=== PATIENT | female | born 1955 | race Caucasian/White ===

== ENCOUNTER 2020-06-04 11:58 | Day surgery (SDC) | payer OTHER, SELFPAY ==
--- NOTE | 2020-06-01 18:29 | HP.PCM_ITS ---
History and Physical Date of Admission: 06/04/20 HISTORY AND PHYSICAL ? Tari Macias 1955 ? ? REFERRING PHYSICIAN: Rebecca Jackson MD ? CHIEF COMPLAINT: No chief complaint on file. ? HPI: The patient is a 64 year old female presents with metastatic cholangiocarcinoma. This was found incidentally on CT scan when she presented with diverticulitis. She underwent CT guided biopsy which revealed poorly differentiated adenocarcinoma. She is being referred for placement of portacath for IV access for chemotherapy. She denies previous central line placement. She denies history of clavicular or rib fractures. She denies history of upper extremity DVT. She denies bleeding tendencies. She denies fevers. ? ? PAST MEDICAL HISTORY ? 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 Diverticulitis ? ? Esophageal reflux ? ? Essential hypertension, benign ? ? Sciatica ? ? Variants of migraine, not elsewhere classified, without mention of intractable migraine without mention of status migrainosus ? ? PAST SURGICAL HISTORY ? COLONOSCOPY ? 2013 ? repeat 5 years ? CONIZATION OF CERVIX; COLD KNIFE/LASER ? 1984 ? DOMINIC HX ? ? ? PAST SURGICAL HISTORY OF ? ? ? Pins in Left Ankle ? PAST SURGICAL HISTORY OF ? ? ? Pins Removed from Left Ankle ? UNSPECIFIED ORAL SURGERY PROCEDURE, BY REPORT ? ? ? Parachute Teeth Removed x4 ? WRIST SURGERY HX Right 02/2020 ? ? Current Outpatient Medications ? cetirizine (ZYRTEC) 10 mg tablet Take 10 mg by mouth as needed for Cold/Allergy Symptoms. ? ondansetron (ZOFRAN) 4 mg tablet Take 4 mg by mouth every 8 hours as needed. ? ATENOLOL 25 MG TAB Take one(1) tablet daily. ? ZOLOFT 50 MG TAB Take one(1) tablet daily. ? PROTONIX 40 MG TAB Take 40 mg by mouth once daily. ? ? ? ALLERGIES: Patient has no known allergies. ? PERSONAL HISTORY: Social History ?Tobacco Use ? Smoking status: Never Smoker ? Smokeless tobacco: Never Used Substance Use Topics ? Alcohol use: Not Currently ? ? Comment: none for 40 years ? Drug use: Not Currently ? ? Types: Marijuana ? ? Comment: smoked pot in college. none since. ? FAMILY HISTORY ? Cancer Mother ? ? ovarian ? Coronary Artery Disease Father ? ? Hypertension Father ? ? Systemic Lupus Erythematosus Sister ? ? Diabetes Sister ? ? No Known Problems Sister ? ? No Known Problems Brother ? ? Cancer Maternal Grandmother ? ? uterine ? Stroke Maternal Grandfather ? ? Heart disease Paternal Grandmother ? ? ? REVIEW OF SYSTEMS: General - denies fevers, has had decreased appetite with weight loss of almost 40 pounds in a few months Cardiovascular - denies chest pain, denies history of MA Pulmonary - denies shortness of breath, denies coughing up blood Gastrointestinal - denies abdominal pain, denies hematemesis, denies blood in stools Neurological - denies seizures, has migraine type headaches, denies chronic numbness/weakness of extremities Genitourinary - denies burning with urination, denies blood in urine Hematological - denies spontaneous/prolonged bleeding Skin - denies nonhealing skin wounds Musculoskeletal - no new muscle/bone pain Endocrine - denies diabetes, no thyroid problems Psychological ? denies hallucinations ? PHYSICAL EXAMINATION: General: The patient is 64 year old female, well nourished, well hydrated in no acute distress. The patient is oriented to time, place, and person. VITALS: Pulse (!) 121, temperature 36.9 ?C (98.4 ?F), weight 66.3 kg (146 lb 3.2 oz), last menstrual period 10/31/2010, SpO2 98 %. Body mass index is 23.5 kg/m?. Head ? Normocephalic. EOM intact with sclera clear and no icterus noted. Mouth with mucus membranes moist. Neck - supple with no jugular venous distention noted. Trachea is midline. Lungs ? clear to auscultation. Normal breath sounds. No rales/rhonchi/wheezing noted. No labored breathing noted, such as retractions. No cough heard. Heart ? normal S1 and S2 auscultated. No rubs/clicks/murmurs noted. Regular rate. Abdomen ? soft and benign. Normal bowel sounds. No abdominal bruits noted. Extremities ? no calf tenderness noted. No pitting edema noted. Skin ? normal skin integrity. Neurological ? gait normal, no focal deficits noted. Psych ? calm and appropriate ? ? IMPRESSION: metastatic cholangiocarcinoma to liver, need for IV access for palliative chemotherapy. ? PLAN: I have discussed the above with the patient and her who is present with her. I have offered palcement of portacath. I have explained the procedure to the patient. I have counseled the patient as to the risks of the procedure, including but not limited to: infection, bleeding, injury to any blood vessels/nerves, scar tissue, injury to the lungs such as hemothorax and/or pneumothorax, thromboses of vessels, catheter infection, non functioning of port, wound infections, complications of anesthesia, etc. ? the patient understands. ? The patient was offered a surgery/procedure . The provider and patient have discussed in detail the risk of exposure to and/or potential harm posed by the COVID-19 virus with having a surgery/procedure at this time versus the risk of? delaying the surgery/procedure. It is not possible to know either the risk of delaying the surgery or procedure or chance of getting an infection with perfect accuracy, but a joint decision was made between the patient and the provider ?to proceed at this time with the scheduled surgery/procedure. ? The patient wishes to proceed. I have answered all questions to the patient?s satisfaction and the patient has no further questions. ? . 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
[2020-06-04] VITALS (8 sets, daily range): BP systolic 110–164; BP diastolic 65–90; PULSE 61–98; RESP 16–18; TEMP 36.3–37.3; O2SAT 95–100; BMI 23.1
[2020-06-04] MEDS: Lactated Ringers 1,000 ML 75 ML IV ×2 (12:37→15:21)
[2020-06-04] MEDS: Cefazolin 2 GM in 0.9% Normal Saline 100 ML IV (13:45)
--- NOTE | 2020-06-04 15:01 | OP.PCM_ITS ---
Report of Operation Date of Procedure: 06/04/20 Pre-Operative Diagnosis: metastatic cholangiocarcinoma, need for IV access Post-Operative Diagnosis: same Surgery/Procedure Performed:: placement of permanent indwelling tunneled catheter in left subclavian vein with subcutaneous port Description of Surgical Findings:: had to pull back catheter because of inability to aspirate blood from catheter, thus tip may be in brachiocephalic vein Type of Anesthesia:: Local MAC Anesthesiologist: Roland Willson Specimen's removed: none Estimated Blood Loss (mL): 10 ml Fluids Replaced: 800 ml RL Description of Procedure: After informed consent was given, the patient was brought to the Operating Room. Appropriate time out protocol was followed. The patient was then placed in the supine position. The patient was then given IV conscious sedation for anesthesia. The patient?s upper chest and neck were then prepped with a surgical skin preparation and sterile surgical drapes were placed. After proper landmarks were ascertained, the skin at the upper left chest area was then infiltrated with 1% xylocaine with epinephrine. A needle trocar was then inserted into the left subclavian vein and there was good aspiration of venous blood. A wire was then threaded into the needle trocar and this was visualized under fluoroscopy to ensure that the wire was in the left subclavian vein. Once this was done, then the needle trocar was removed. A small skin eliel was made with an 11 blade knife at the wire entrance site. The dilator with the introducer sheath attached was then placed over the wire into the left subclavian vein via the Seldinger technique and this was visualized under fluoroscopy. The dilator and sheath were in proper position as visualized by fluoroscopy in real time. The wire and dilator were then removed. The catheter was then threaded into the introducer sheath and was positioned with its tip at the junction of the superior vena cava and the right atrium as visualized under fluoroscopy in real time. I personally reviewed all of the above fluoroscopic images and noted that the positions of the wire and catheter were correct so that the next step could be conducted. The catheter was flushed with a heparin saline mixture prior to placement. A subcutaneous pocket was then created caudad to the catheter insertion site. A transverse skin incision was made after the skin and subcutaneous tissues were infiltrated with local anesthetic. Blunt dissection was then used to create a space large enough for placement of the subcutaneous port. Hemostasis was carefully controlled with electrocautery. The port was sutured to the subcutaneous fascia using vicryl suture at three sites. The catheter was then tunneled into the subcutaneous pocket. The excess catheter was transected. The catheter was then attached to the subcutaneous port using machine feller?s guidelines. The port was then placed in the subcutaneous pocket and the sutures were ligated. The port was then accessed and there good aspiration of blood and it was then flushed/filled with normal saline. The subdermal incisional sites were reapproximated with interrupted vicryl suture. The port was then accessed again but blood could not be aspirated. This was attempted numerous times. The catheter was therefore pulled back with a subcutaneous pocket made to allow for the excess catheter to be in the subcutaneous space in a loop. The catheter was pulled back cm by cm and each time the port was accessed to determine if aspiration could be done. Finally, there was a position of the catheter at which the blood could be easily aspirated and the port was then flushed easily with normal saline. The catheter was then attempted to be advanced, however, the port was easily flushed but blood could not be aspirated. I therefore left that catheter at the location where aspiration of blood and flushing of the catheter could be easily done, this may be more proximal, that is, the tip may be in the brachiocephalic vein. The subdermal tissues were reapproximated with vicryl suture. The skin was reapproximated with monocryl suture in a subcuticular fashion. Cavilon and steristrips were used for reinforcement of the skin closure and a sterile opsite dressing was applied. Sponge, needle, and instrument count were verified and correct at the time of skin closure. Aspiration revealed good influx of blood and the port was then flushed/filled with heparinized saline. The patient was brought to the Recovery Room in stable condition Grafts/Implants Used: PowerPort Lot [id number], exp 2021-07-17 - Complications none noted - Admit VTE Documentation VTE Present on Admission: Yes VTE Mechan Device Prophylaxis: SCD's
--- NOTE | 2020-06-04 15:16 | DCINST_ITS ---
Discharge Diet: No Restrictions Discharge Activity: Return to Normal Activity, May not drive while taking narcotic pain medications. Call your doctor if your incision/area has: Continuous Slow Oozing, Foul Smelling Discharge Call your doctor if you observe: Fever of 101 or Higher Additional Instructions: Recommended pain control regimen - May take 600 mg ibuprofen (Motrin) and then in 3-4 hours, may take 650 mg acetaminophen (Tylenol), then in 3-4 hours may take 600 mg ibuprofen, then in 3- 4 hours may take 650 mg acetaminophen and so on for 2-3 days May take narcotic pain medication for pain that is not controlled by above and at night for comfort through the night Leave dressings in place May get dressings wet in shower - do not scrub in the area and pat dry Do not soak - no tub baths/swimming If dressing appears to be soiled/open at one end/no longer sealed - may remove dressing but leave site uncovered (do not replace with any type of dressing) - leave steristrips in place - may get wet but do not scrub in the area and pat dry May apply ice to area as tolerated Allergies/Adverse Reactions: Allergies No Known Allergies Allergy (Verified 06/04/20 12:14) Medications to take at Discharge Atenolol [Tenormin (beta Macario)] 25 mg PO QHS 06/01/20 Cetirizine HCl [Zyrtec] 10 mg PO DAILY 06/01/20 Fluticasone 0.05% [Flonase Nasal [place]] 1 spray NASAL DAILY PRN 06/01/20 Ondansetron HCl [Zofran] 4 mg PO BID PRN PRN 06/01/20 Pantoprazole Sodium [Protonix] 40 mg PO BID 06/01/20 Sertraline HCl [Zoloft] 100 mg PO DAILY 06/01/20 Primary Care Physician: Jose C Kent MD [Primary Care Provider] - Test Results: Test results from this visit will be discussed in further detail at your follow- up appointment, if applicable.
--- NOTE | 2020-06-04 15:20 | RAD_ITS ---
STUDY: X-RAY CHEST REASON FOR EXAM: Female, 64 years old. Post op port insertion TECHNIQUE: Single AP portable view of the chest. COMPARISON: None. FINDINGS: A left-sided jignesh catheter as been inserted. The tip of the catheter is in the left subclavian vein and left brachiocephalic vein. The lungs are clear and expanded. There is no demonstrated pleural abnormality. Normal size heart. Normal mediastinum and alexis. Normal visualized pulmonary arteries. There is atherosclerotic tortuosity of the aortic arch and descending thoracic aorta. There are degenerative changes of the visualized thoracic spine. Normal visualized ribs, clavicles, and shoulders. There is no demonstrated abnormality of the visualized soft tissue structures of the upper abdomen. RAD/CXR for Line Placement IMPRESSION: The tip of the left portacatheter is at the junction of the origin of the left subclavian vein and left brachiocephalic vein. Electronically Signed: Melecio Elias, at 15:41 EDT , Service support ,
--- NOTE | 2020-06-04 15:32 | SUR.PHASEI ---
dr garcia reviewed chest xray. okayed for pt to drink and have a snack.
== END 2020-06-04 16:58 | disposition home or self-care (01) ==
LOC: SDC 11:59 → AC 11:59
PROVIDERS: Anesthesiology; Referring Provider Surgery; Visit Provider Surgery
PROC: (CPT 36561; principal; 2020-06-04 13:15)
DX: C22.1 Intrahepatic bile duct carcinoma (principal); C78.7 Secondary malignant neoplasm of liver and intrahepatic bile duct; Z45.2 Encounter for adjustment and management of vascular access device; K21.9 Gastro-esophageal reflux disease without esophagitis; F41.9 Anxiety disorder, unspecified; I10 Essential (primary) hypertension; Z11.59 Encounter for screening for other viral diseases; Z79.899 Other long term (current) drug therapy
CPT/HCPCS: 00532; 36561; 71045; 77001; 87635; J7050; J7120; C1788; J2405; J3490; U0003

== ENCOUNTER 2020-06-23 17:05 | Emergency (ER) | payer OTHER, SELFPAY ==
[2020-06-04 12:18] VITALS: BMI 23.1
[2020-06-23 17:06] VITALS: BP 116/33; PULSE 93; RESP 14; TEMP 37.2; O2SAT 98; BMI 23.0
--- NOTE | 2020-06-23 17:17 | ED.DCSUM_ITS ---
- ER Visit Summary Date of Service: 06/23/20 Chief Complaint: [] History of Present Illness: The patient is a 64 F [] Physical Examination: [] Test Results: [] Emergency Department Course and Treatment: [] Treatment Plan: [] Disposition: [] Impression: [] This note was generated with [email or web address] dictation software. It may contain incorrect words, spelling, and punctuation that were not noted in review of the chart prior to signing ED Disposition - Plan for ED Patient: Referrals: Jose C Kent MD [Primary Care Provider] -
--- NOTE | 2020-06-23 17:18 | EKG12_ITS ---
Test Reason : NUMBNESS Blood Pressure : / mmHG Vent. Rate : 084 BPM Atrial Rate : 084 BPM P-R Int : 114 ms QRS Dur : 084 ms QT Int : 354 ms P-R-T Axes : 052 006 012 degrees QTc Int : 418 ms Normal sinus rhythm with sinus arrhythmia Nonspecific T wave abnormality Abnormal ECG Confirmed by MARIANA MONTENEGRO, GOPAL ([id number]), photographic editor ZINA PALACIOS ([id number]) on 06/29/2020 1:05:35 PM Referred By: RAJ Confirmed By:GOPAL PEÑA MD
[2020-06-23 17:35] VITALS: BP 95/76; PULSE 75; RESP 14; O2SAT 100
--- NOTE | 2020-06-23 17:40 | ED.DCSUM_ITS ---
- ER Visit Summary Date of Service: 06/23/20 Chief Complaint: Dizziness History of Present Illness: Presents to the ED with generalized subjective tingling started at noon after taking her potassium replacement. She started potassium 3 days ago twice a day. She is found to have low potassium patient not on diuretic. No recent diarrhea. History of intraparietal cholangiocarcinoma with metastatic disease to the liver diagnosed this past March followed by Dr. Chandler. Started chemo treatment approximately 2 weeks ago last treatment a week ago. No fevers. No vomiting. No abdominal pain or chest pain. No speech changes. Review of systems: All 10 review of systems discussed with the patient currently only significant positive is generalized paresthesia. All others negative. Physical Examination: General: Alert and oriented ?3, no acute distress HEENT: Normocephalic, atraumatic. Moist mucosa membranes. Neck: supple, nontender. No meningismus. Cardiovascular: Regular rate and rhythm, no murmurs Respiratory: Normal breath sounds, symmetric, no distress Abdomen: Soft, nontender, nondistended Extremities: Nontender, no edema, pulses intact ?4 Neuro: no focal neurological deficits. Current nerves II through XII intact. Sensation intact and symmetric bilaterally. Test Results: EKG: Sinus rate of 84, no ST changes. Isolated T wave inversion leads III. Potassium 3.5 magnesium 1.5, calcium 7.7. WBC 0.7. Emergency Department Course and Treatment: Patient generalized paresthesia no other symptoms there is no weakness. With her recent findings of hypokalemia I was concerned for electrolyte abnormalities. She was given IV magnesium 2 g additional 20 mEq of potassium was given this improved her paresthesias. She is found to be neutropenic she is approximate 7 days from her chemo this is ex pected. She has no fevers. No cough or urine symptoms. I discussed with her oncologist Dr. Jackson, discussed she was hypercalcemia with her cancer she was treated with medications to suppress her calcium which made it low likely causing her electrolyte disturbances also. He is updated on the findings and replacements. He requests patient to be on calcium with vitamin D daily and follow-up with him. This was discussed with the patient. Follow-up given. Treatment Plan: [] Disposition: Discharge Impression: 1. Transient paresthesias 2. Hypomagnesemia 3. Hypocalcemia 4. Neutropenia 3. Metastatic intrahepatic cholangiocarcinoma to liver This note was generated with Dragon dictation software. It may contain incorrect words, spelling, and punctuation that were not noted in review of the chart prior to signing ED Disposition - Plan for ED Patient: Disposition: Home or Assisted Living Diagnosis: Paresthesia, Hypomagnesemia, Hypocalcemia, Intrahepatic cholangiocarcinoma, Neutropenia Instructions: ED Hypocalcemia, Hypomagnesemia, Hypocalcemia Prescriptions: Calcium Carbonate/Vitamin D3 [Calcium 500 mg-Vit D3 600 Unit] 1 ea PO DAILY #30 tab Transmission Status: Pending to [facility] Referrals: Jose C Kent MD [Primary Care Provider] - Rebecca Jackson MD [STAFF PHYSICIAN] - 3-5 Days Additional Instructions: If you develop fever, contact Dr. Jackson for instructions.
[2020-06-23 17:41] LABS: Absolute Lymphocyte Count 0.52 X10^3/uL (0.83-4.51); Absolute Neutrophil Count 0.1 X10^3/uL (2.0-7.7); Hematocrit 32.6 % (37-47); Hemoglobin 10.7 g/dL (12.0-15.0); Lymphocyte # 0.52 X10^3/ul (4.0); Lymphocyte % 78.8 % (19-41); Mean Corp Hgb Conc 32.8 g/dL (32-36); Mean Corpuscular Hgb 27.2 pg (27.0-32.0); Mean Platelet Vol. 9.9 fl (6.2-12.0); Monocyte# 0.01 X10^3/uL; Monocyte% 1.5 % (0-10); NRBC Flagged by Analyzer 0 % (0-5); Neutrophil # 0.12 X10^3/uL (2.7-7.7); Neutrophil % 18.2 % (47-70); POSITIVE COUNT YES; POSITIVE DIFFERENTIAL YES; Platelet Count 76 K/mm3 (150-450); RBC Distribution Width CV 12.4 % (11.6-14.6); Red Blood Count 3.93 M/mm3 (4.2-5.4)
[2020-06-23 17:51] LABS: Differential Indicated SCAN CRITERIA MET; White Blood Count 0.7 K/mm3 (4.4-11.0)
[2020-06-23 17:52] LABS: Anion Gap 9 (5-15); BUN 8 mg/dL (7-18); BUN/Creat Ratio 9.6 RATIO (10-20); Calcium,Total 7.7 mg/dL (8.5-10.1); Chloride 110 mmol/L (98-107); Creatinine, Serum 0.84 mg/dL (0.55-1.02); EST Glomerular Filtration Rate 73 mL/min (>60); Est Glom Filt Rate - Afr Amer 88 mL/min (>60); Estimated Creatinine Clearance 64.17 ml/min; Glucose 95 mg/dL (74-106); Magnesium 1.5 mg/dL (1.6-2.6); Potassium 3.5 mmol/L (3.5-5.1); Sodium Level 140 mmol/L (136-145)
[2020-06-23 18:28] LABS: Differential Comment SCANNED; Platelet Estimate MOD DEC (ADEQ)
[2020-06-23] MEDS: Magnesium Sulfate 2 GM IV IV (18:40)
[2020-06-23] MEDS: 0.9% Normal Saline 1,000 ML 999 ML IV (18:59)
[2020-06-23 19:43] VITALS: BP 104/86; PULSE 85; RESP 21; O2SAT 100
[2020-06-23 20:49] VITALS: BP 106/84; PULSE 88; RESP 15; O2SAT 98
[2020-06-24 13:33] LABS: Pathologist Review Reviewed
== END 2020-06-23 20:51 | disposition home or self-care (01) ==
PROVIDERS: Emergency Provider Emergency Medicine
DX: R20.2 Paresthesia of skin (principal); E83.42 Hypomagnesemia; E83.51 Hypocalcemia; D70.9 Neutropenia, unspecified; C22.1 Intrahepatic bile duct carcinoma; C78.7 Secondary malignant neoplasm of liver and intrahepatic bile duct
CPT/HCPCS: 80048; 83735; 85025; 93005; 96361; 96365; 99283; J7030; A4216; J3475

== ENCOUNTER → 2020-09-22 09:56 | Outpatient (CLI) | payer OTHER, SELFPAY ==
--- NOTE | 2020-09-22 | FLU_PTH ---
PATIENT: JORGE MARSH LOC: U#:[id number] AGE/SX: 69/F ROOM: RE09/22/[address]: Dr. Rebecca Jackson MD : 1955 BED: DIS: SPEC #: [id number] RECD: 09/22/20 12:47 STATUS: ROSEANNE REBryan #: [id number] SASCHA: 09/22/20 00:[address]: Rebecca Jackson DEPT: CYTOLOGY RECD BY: Po Abdalla ENTERED: 09/22/20 12:47 SP TYPE: Fluid OTHR DR: Dr. Jose C Kent MD Tissues: PARACENTESIS FLUID Procedures: Special Stain Group II Surgery Specimen Level IV Cytospin Fluid HEADER OPERATION: Paracentesis PRE-OP DIAGNOSIS: Ascites TISSUE SUBMITTED: Paracentesis fluid for cytology DIAGNOSIS CYTOLOGY Paracentesis fluid for cytology (cytospin and cell block): Negative for malignant cells. AM:myesha 09/23/2020 CYTOLOGY STUDY Slides are reviewed. CYTOLOGY GROSS Received is 80 ml of yellow cloudy fluid labeled with the patient's name and and designated per the requisition as paracentesis. Submitted for cytology preparation including cell block. / rg 09/22/2020 TC:5 CPT: 49825, 00582
--- NOTE | 2020-09-22 10:00 | US_ITS ---
PROCEDURE: Ultrasound guided paracentesis. DATE OF EXAMINATION: 09/22/2020. INDICATION: Female, 64 years old. Ascites. PHYSICIAN: Melecio Elias M.D. TECHNIQUE: The risks, benefits, and alternatives to the procedure were explained to the patient. The specific risks of bleeding, infection, and damage to bowel were detailed and accepted. Witnessed informed consent was obtained. The abdomen was ultrasonographically surveyed. An appropriate pocket of fluid was identified at the right lower quadrant. The skin were cleaned and prepped in the usual sterile fashion. Using ultrasound guidance, the peritoneal cavity was accessed with a 5-[place] paracentesis needle/catheter system. The trocar was removed. A total of 1900 ml of haresh-colored fluid were removed from the peritoneal cavity. A 100 mL sample was sent to the laboratory. The catheter was removed and a sterile dressing was applied. The procedure was well tolerated. US/Paracentesis with US IMPRESSION: Ultrasound guided paracentesis. Electronically Signed: Melecio Elias, at 12:57 EST , Service support ,
[2020-09-22 10:34] VITALS: BP 143/89; BP 148/84; BP 152/91; PULSE 100; PULSE 73; PULSE 99; RESP 18; RESP 20; TEMP 36.7; O2SAT 100; O2SAT 98; O2SAT 99
[2020-09-22 10:36] LABS: International Normalized Ratio 1.2; Prothrombin Time (Protime)PT. 14.5 SECONDS (11.7-14.9)
[2020-09-22 11:32] LABS: Cytology, Body Fluid / CSF SEE PATHOLOGY REPORT
[2020-09-22 11:35] LABS: Hematocrit 30.5 % (37-47); Hemoglobin 9.1 g/dL (12.0-15.0); Mean Corp Hgb Conc 29.8 g/dL (32-36); Mean Corpuscular Hgb 30.5 pg (27.0-32.0); Mean Corpuscular Volume 102.3 fL (81-99); Mean Platelet Vol. 11.3 fl (6.2-12.0); POSITIVE MORPHOLOGY YES; Platelet Count 182 K/mm3 (150-450); RBC Distribution Width SD 71.5 fl (35.1-43.9); Red Blood Count 2.98 M/mm3 (4.2-5.4); White Blood Count 10.6 K/mm3 (4.4-11.0)
[2020-09-22 11:50] LABS: Scan Indicated on CBC? Y/N YES- FLAGS NOTED
[2020-09-22 12:41] LABS: Differential Comment SCANNED
[2020-09-22 12:44] LABS: Protein, Body Fluid 2.6 g/dL (Not Establ.)
[2020-09-22 13:12] LABS: Body Fluid Mononuclear WBC # 0.156 10^3/uL; Body Fluid Mononuclear WBC % 76.1 %; Body Fluid Polynuclear WBC # 0.049 10^3/uL; Body Fluid Polynuclear WBC % 23.9 %; Body Fluid Total Cells Counted 0.262 10^3/ul; White Blood Count/Body Fluid 0.205 10^3/uL
[2020-09-22 13:16] LABS: Red Cell Count/Body Fluid 89 /mm3
[2020-09-22 13:46] LABS: Auto B Fluid Analyzer BKGD Ct COUNTS W/IN LIMITS (W/IN LIMITS)
[2020-09-22 13:47] LABS: Appearance/Body Fluid CLEAR; Color/Body Fluid YELLOW; Lymphocytes 2 %; Source- Body Fluid OTHER
[2020-09-22 13:53] LABS: Macrophages 23 %; Mesothelial Cells 63 %; Neutrophil (Segs) 12 %
[2020-09-22 13:54] LABS: Body Fluid QC Type(s) BF1Q,BF2Q; Monocytes 0 %
[2020-09-23 12:47] LABS: Pathologist Comment/Body Fluid Reviewed
== END ==
PROVIDERS: Referring Provider Internal Medicine Hematology & Oncology; Visit Provider Internal Medicine Hematology & Oncology
DX: R18.8 Other ascites (principal); C22.1 Intrahepatic bile duct carcinoma
CPT/HCPCS: 36415; 49083; 84157; 85027; 85610; 88108; 88305; 88313; 89050